=== PATIENT | female | born 1975 | race Caucasian/White ===

== ENCOUNTER 2018-03-29 09:11 | Outpatient (CLI) ==
--- NOTE | 2018-03-29 09:47 | DI ---
EXAM: Four views of the right knee. History: Right knee pain. Findings: No acute fracture or dislocation. Joint effusion is present. Mild to moderate tricompart mental joint space narrowing with marginal sclerosis and osteophyte formation and most significant in volving the patellofemoral joint. Impression: 1. No acute osseous abnormality. 2. Mild to moderate tricompartmental osteoarthritis. 3. Joint effusion
== END 2018-03-29 09:12 | disposition home or self-care (01) ==
LOC: RAD 09:11
PROVIDERS: ATTEND Nurse Practitioner Family
DX: M25.561 Pain in right knee (principal); M25.461 Effusion, right knee

== ENCOUNTER 2018-09-26 21:42 | Outpatient (CLI) ==
[2018-09-26 22:21] VITALS: BMI 37.0
== END 2018-09-26 22:00 | disposition critical access hospital (66) ==
LOC: AMBL 21:42
PROVIDERS: ATTEND Internal Medicine Geriatric Medicine
DX: R45.851 Suicidal ideations (principal); S51.812A Laceration without foreign body of left forearm, initial encounter; S51.811A Laceration without foreign body of right forearm, initial encounter; F10.129 Alcohol abuse with intoxication, unspecified

== ENCOUNTER 2018-09-26 22:10 | Emergency (ER) ==
[2018-09-26 22:21] VITALS: BMI 37.0
[2018-09-26] MEDS ORDERED: LACTATED RINGERS 1,000 ML IV STA (23:32)
[2018-09-26] MEDS ORDERED: ZOFRAN 4 MG/2 ML IVP STA (23:56)
--- NOTE | 2018-09-27 00:34 | ED.PDOC ---
General ED Provider: Dr. RAMANA WARD Chief Complaint: Psychiatric Complaint Stated Complaint: Had too much alcohol and the cut hand wanting to hurt self. Now denies any intension. Denies using drugs Time Seen by Physician: 22:30 Information Source: Patient, EMT Exam Limitations: No limitations Primary Care Provider: SUSI CAMPBELL Nursing and Triage Documentation Reviewed and Agree: Yes Does patient meet sepsis criteria?: No System Inflammatory Response Syndrome: Not Applicable Sepsis Protocol: For patient's 13 years and over: Temp is 96.8 and below OR 101 and greater Pulse >90 BPM Resp >20/minute Acutely Altered Mental Status Are patient's symptoms suggestive of a new infection, such as: -Pneumonia -Skin, Soft Tissue -Endocarditis -UTI -Bone, Joint Infection -Implantable Device -Acute Abdominal Infection -Wound Infection -Meningitis -Blood Stream Catheter Infection -Unknown Psychological Complaint Exam - Overdose/Toxic Exposure Complaint/Exam Patient Complains Of: Overdose Ingestion Occurred: prior to arrival Witnessed: No Ingestion: Other (Alcohol ) Character: Reports: Oral Aggravating: Reports: Swallowing Treatment Prior To Arrival: None Associated Signs And Symptoms: Reports: Vomiting, Intentional ingestion. Denies : AMS, Agitation, Seizure, Diaphoresis, Chest pain, Palpitations, Cyanosis, Short of air, Cough, Drooling, Unintentional overdose, Pediatric ingestion Related History: Reports: Suicidal thoughts, Suicidal plan, Suicidal gestures Completed Suicide Risk Factors: None Gag Reflex Present: Yes Inability To Swallow Present: No Drooling Present: No Glascow Coma Scale (see protocol): 15 Miosis Present: No Mydriasis Present: No Nystagmus Present: No Speech: Present: Slurred Aphasia: Present: None Gait: Present: Unable Patient Uncooperative For Exam: Yes Mood: Present: Depressed, Anxious Appearance: Present: Unkempt Thought Process: Present: Illogical Insight: Present: Poor Memory: Impaired Judgement: Impaired Danger To Others: No Patient Medically Stable For: Psych evaluation Differential Diagnoses: Alcohol Abuse, Suicide Attempt Review of Systems - Review Of Systems Constitutional: Reports: No symptoms Eyes: Reports: No symptoms Respiratory: Reports: No symptoms Cardiac: Reports: No symptoms GI: Reports: Nausea, Vomiting Skin: Reports: Bruising Neurological: Reports: Anxiety, Depressed, Emotional problems All Other Systems: Reviewed and Negative Past Medical History - Past Medical History Previously Healthy: Yes Endocrine: Reports: None Cardiovascular: Reports: None Respiratory: Reports: None Hematological: Reports: None Gastrointestinal: Reports: GERD Genitourinary: Reports: None Neuro/Psych: Reports: Migraine, Anxiety, Depression Musculoskeletal: Reports: Arthritis Cancer: Reports: None Last Menstrual Period: UNKNOWN Other Pertinent Past Medical History: FIBROMYALGIA/OSTEOARTHRITIS - Surgical History General Surgical History: Reports: None - Family History Family History: Reports: Unknown - Social History Smoking Status: Never smoker Hx Substance Use: No Alcohol Screening: Occasionally - Immunizations Tetanus Shot up to Date: No Physical Exam - Physical Exam Appearance: Ill-appearing Ill-appearing: Moderate Pain Distress: None Eyes: SIDDHARTHA, EOMI, Conjunctiva clear ENT: Nose normal, Oropharynx normal (etoh aroma ) Neck: Supple Respiratory: Airway patent, Breath sounds clear, Breath sounds equal, Respirations nonlabored Cardiovascular: RRR, Pulses normal, No rub, No murmur GI/: Soft, Nontender, No masses, Bowel sounds normal, No Organomegaly Skin: Warm, Dry Neurological: Alert, Oriented Psychiatric: Anxious, Depressed Interpretation - EKG Interpretation Time of EKG #1: 23:40 Rate: Normal Rhythm: Sinus Ectopy: None [place]: [place] Interpretation: Kathryn EKG Critical Care Note - Critical Care Note Total Time (mins): 30 Course - Course Hematology/Chemistry: 09/26/18 23:10 09/26/18 23:10 Orders, Labs, Meds: Lab Review 09/26/18 09/26/18 09/27/18 23:10 23:10 01:50 WBC 12.16 H RBC 3.94 L Hgb 11.9 L Hct 36.7 L MCV 93.1 MCH 30.2 MCHC 32.4 RDW Coeff of Giselle 14.1 Plt Count 328 Immature Gran % (Auto) 0.4 Neut % (Auto) 65.2 Lymph % (Auto) 26.4 [place] % (Auto) 7.1 Eos % (Auto) 0.2 Baso % (Auto) 0.7 Immature Gran # (Auto) 0.1 Neut # (Auto) 7.9 H Lymph # (Auto) 3.2 [place]ingo # (Auto) 0.9 Eos # (Auto) 0.0 Baso # (Auto) 0.1 Sodium 143.1 Potassium 3.21 L Chloride 110.3 H Carbon Dioxide 24.2 Anion Gap 11.81 BUN 6.5 L Creatinine 0.68 Estimated GFR (MDRD) 95.00 BUN/Creatinine Ratio 9.55 Glucose 81.7 Calcium 8.69 Total Bilirubin 0.39 AST 27.4 ALT 12.5 Alkaline Phosphatase 60.1 Total Protein 7.75 Albumin 4.41 Globulin 3.34 Albumin/Globulin Ratio 1.32 Urine Color Urine Clarity Urine pH Ur Specific Gilmer Urine Protein Urine Glucose (UA) Urine Ketones Urine Blood Urine Nitrite Urine Bilirubin Urine Urobilinogen Ur Leukocyte Esterase Urine Microscopic RBC Urine Microscopic WBC Ur Squamous Epith Cells Urine Bacteria Urine Mucus Salicylate Level mg/dL < 1.00 Urine Opiates Screen Negative Ur Oxycodone Screen Negative Urine Methadone Screen Negative Ur Propoxyphene Screen Negative Acetaminophen < 10.0 L Ur Barbiturates Screen Negative U Tricyclic Antidepress Negative Ur Phencyclidine Scrn Negative Ur Amphetamine Screen Negative U Methamphetamines Scrn Negative U Benzodiazepines Scrn Negative Urine Cocaine Screen Negative U Cannabinoids Screen Negative Plasma/Serum Alcohol 124.1 H 09/27/18 01:55 WBC RBC Hgb Hct MCV MCH MCHC RDW Coeff of Giselle Plt Count Immature Gran % (Auto) Neut % (Auto) Lymph % (Auto) [place] % (Auto) Eos % (Auto) Baso % (Auto) Immature Gran # (Auto) Neut # (Auto) Lymph # (Auto) [place] # (Auto) Eos # (Auto) Baso # (Auto) Sodium Potassium Chloride Carbon Dioxide Anion Gap BUN Creatinine Estimated GFR (MDRD) BUN/Creatinine Ratio Glucose Calcium Total Bilirubin AST ALT Alkaline Phosphatase Total Protein Albumin Globulin Albumin/Globulin Ratio Urine Color Yellow Urine Clarity Clear Urine pH 6.0 Ur Specific [place] 1.015 Urine Protein Negative Urine Glucose (UA) Negative Urine Ketones Negative Urine Blood Negative Urine Nitrite Negative Urine Bilirubin Negative Urine Urobilinogen 0.2 Ur Leukocyte Esterase 2+ Urine Microscopic RBC 0-2 Urine Microscopic WBC 5-10 Ur Squamous Epith Cells 10-20 Urine Bacteria 1+ Urine Mucus Trace Salicylate Level mg/dL Urine Opiates Screen Ur Oxycodone Screen Urine Methadone Screen Ur Propoxyphene Screen Acetaminophen Ur Barbiturates Screen U Tricyclic Antidepress Ur Phencyclidine Scrn Ur Amphetamine Screen U Methamphetamines Scrn U Benzodiazepines Scrn Urine Cocaine Screen U Cannabinoids Screen Plasma/Serum Alcohol Orders Category Date Time Status EKG-(ED ONLY) Stat CARDIO 09/26/18 22:24 Completed 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 09/26/18 22:24 Active ED IV/MEDIPORT/POWERPORT .ONCE EMERGENCY 09/26/18 22:24 Active ACETAMINOPHEN Stat LAB 09/26/18 23:10 Completed BLOOD ALCOHOL Stat LAB 09/26/18 23:10 Completed CBC W/ AUTO DIFF Stat LAB 09/26/18 23:10 Completed COMPREHENSIVE METABOLIC PANEL Stat LAB 09/26/18 23:10 Completed DRUG SCREEN, URINE, RAPID Stat LAB 09/26/18 22:24 Completed SALICYLATE Stat LAB 09/26/18 23:10 Completed URINALYSIS C & S IF INDICATED Stat LAB 09/27/18 01:55 Completed URINE CULTURE Stat LAB 09/27/18 01:55 Received 0.9 % Sodium Chloride [Saline Flush] MEDS 09/26/18 22:24 Discontinued 1 syr IVF PRN PRN Ondansetron HCl/Pf [Zofran 4 mg/2 ml] MEDS 09/26/18 23:56 Discontinued 4 mg IVP ONCE STA Ringers Lactated Solution [Lactated Ringers] 1,000 ml MEDS 09/26/18 23:32 Discontinued IV BOLUS Medications Discontinued Medications Generic Name Dose Route Start Last Admin Trade Name Freq PRN Reason Stop Dose Admin Lactated Ringer's 1,000 mls @ 1,000 mls/hr 09/26/18 23:32 09/26/18 23:39 Lactated Ringers IV 09/27/18 00:31 1,000 mls/hr BOLUS STA Administration Ondansetron HCl 4 mg 09/26/18 23:56 09/27/18 00:05 Zofran 4 Mg/2 Ml IVP 09/26/18 23:57 4 mg ONCE STA Administration Sodium Chloride 1 syr 09/26/18 22:24 09/27/18 00:05 Saline Flush IVF 1 syr PRN PRN Administration To flush IV Vital Signs: Temp Pulse Resp BP Pulse Ox 09/27/18 01:25 97.9 F 86 18 118/68 97 09/26/18 22:11 97.5 F L 102 H 20 115/77 98 Departure - Departure Time of Disposition: 05:16 Disposition: HOME SELF-CARE Discharge Problem: Depression, Suicidal ideation, ETOH abuse Instructions: Depression (ED), Alcohol Use Disorder (ED), Suicide Prevention ( ED) Condition: Stable Pt referred to PMD for follow-up: Yes IPMP verified?: No Additional Instructions: Follow up with your counselor as scheduled avoid EOTH in excess Allergies/Adverse Reactions: Allergies morphine Allergy (Severe, Verified 09/26/18 22:21) Anaphylaxis NSAIDS (Non-Steroidal Anti-Inflamma Allergy (Severe, Verified 09/26/18 22:21) rash Home Medications: Ambulatory Orders Albuterol Sulfate [Ventolin Hfa] 18 gm IH Q4-6H PRN 03/13/18 Beclomethasone Dipropionate [Qvar Redihaler] 10.6 gm IH BID 03/13/18 Buspirone HCl 5 mg PO Q8HR PRN #2 03/13/18 Cetirizine HCl 10 mg PO DAILY 03/13/18 Duloxetine HCl [Cymbalta] 60 mg PO DAILY 03/13/18 Gabapentin 800 mg PO BID 03/13/18 Disposition Discussed With: Patient Discharge Problem: Depression Qualifiers: Depression Type: major depressive disorder Major depression recurrence: single episode Active/Remission status: currently active Major depression episode severity: severe Psychotic features: with psychotic features Qualified Code(s): 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
[2018-09-27 03:26] VITALS: BP 118/68; TEMP 97.9
== END 2018-09-27 05:22 | disposition home or self-care (01) ==
LOC: ED 22:10
DX: S61.419A Laceration without foreign body of unspecified hand, initial encounter (principal); W45.8XXA Other foreign body or object entering through skin, initial encounter; R45.851 Suicidal ideations; F10.10 Alcohol abuse, uncomplicated; F32.3 Major depressive disorder, single episode, severe with psychotic features
CPT/HCPCS: 36415; 80053; 80306; 80307; 81001; 85025; 87086; 93005; 93010; 96361; 96374; 99283